=== PATIENT | female | born 1945 ===

== ENCOUNTER 2022-01-17 22:44 | Inpatient (IN) ==
[2022-01-18] MEDS ORDERED: Ondansetron 4 MG/2 ML VIAL IVP PRN (02:24)
[2022-01-18] MEDS ORDERED: Naloxone 0.4 MG/ML INJ IVP PRN (02:24)
[2022-01-18] MEDS ORDERED: Acetaminophen 325 MG TABLET PO PRN (02:24)
[2022-01-18] MEDS ORDERED: Iopamidol - 370 500 ML MLS IVP ONE (03:17)
[2022-01-18 03:47] LABS: Basophils % 0.8 %; Eosinophils # 0.1 K/mcL (0.0-0.6); Eosinophils % 1.5 %; Hematocrit 30.2 % (35.3-44.9); Hemoglobin 9.3 g/dL (11.5-15.4); Immature Granulocytes % 0.5 % (0-4); Lymphocytes # 1.6 K/mcL (0.6-4.6); Lymphocytes % 41.3 %; Mean Corpuscular HGB Conc 30.8 g/dL (31.6-35.5); Mean Corpuscular Hemoglobin 28.7 pg (28.0-33.3); Mean Corpuscular Volume 93.2 fL (83.0-100.0); Mean Platelet Volume 10.7 fL (9.4-12.4); Monocytes # 0.4 K/mcL (0.0-1.3); Monocytes % 10.8 %; Neutrophils # 1.8 K/mcL (1.6-8.9); Platelet Count 175 K/mcL (140-400); Red Blood Count 3.24 M/mcL (3.82-4.97); Red Cell Distribution Width 15.1 % (11.5-14.5); Segmented Neutrophils % 45.1 %
[2022-01-18 03:51] LABS: INR 2.7; Prothrombin Time 30.4 Seconds (9.4-12.1)
[2022-01-18 03:59] LABS: Chol/HDL Ratio 6.7 (0-4.9); Magnesium 2.1 mg/dL (1.6-2.6); Phosphorous 3.6 mg/dL (2.7-4.5)
[2022-01-18 04:03] LABS: % Iron Saturation 16 % (15-50); BUN/Creatinine Ratio 37 (6-26); Blood Urea Nitrogen 24 mg/dL (8-23); Calcium 9.4 mg/dL (8.6-10.3); Carbon Dioxide 27 mEq/L (23-29); Chloride 107 mEq/L (98-107); Glucose 86 mg/dL (70-105); Iron 46 mcg/dL (50-170); Osmolality,Calculated 291 (280-300); Potassium 4.3 mEq/L (3.5-5.1); Sodium 139 mEq/L (136-145); Transferrin 200 mg/dL (203-362)
[2022-01-18 04:18] LABS: Ferritin 96 ng/mL (10-120)
[2022-01-18] MEDS: Pantoprazole 40 MG in 0.9 % Sodium Chloride Mini Bag 100 ML IVC SCH ×4 (05:14→18:17)
[2022-01-18 06:47] LABS: Hepatitis B Surface Antigen Nonreactive (Nonreactive)
[2022-01-18 07:16] LABS: Hepatitis B Core IgM Nonreactive (Nonreactive)
[2022-01-18 07:17] LABS: Hepatitis C Virus Antibody Nonreactive (Nonreactive)
[2022-01-18 07:18] LABS: Hepatitis A Antibody IgM Nonreactive (Nonreactive)
[2022-01-18 11:01] LABS: Basophils % 0.5 %; Eosinophils # 0.1 K/mcL (0.0-0.6); Eosinophils % 1.4 %; Hematocrit 29.4 % (35.3-44.9); Hemoglobin 9.1 g/dL (11.5-15.4); Immature Granulocytes % 0.5 % (0-4); Lymphocytes # 1.5 K/mcL (0.6-4.6); Lymphocytes % 34.9 %; Mean Corpuscular Hemoglobin 29.4 pg (28.0-33.3); Mean Corpuscular Volume 95.1 fL (83.0-100.0); Mean Platelet Volume 10.7 fL (9.4-12.4); Monocytes # 0.5 K/mcL (0.0-1.3); Monocytes % 10.5 %; Neutrophils # 2.3 K/mcL (1.6-8.9); Platelet Count 164 K/mcL (140-400); Red Blood Count 3.09 M/mcL (3.82-4.97); Red Cell Distribution Width 15.2 % (11.5-14.5); Segmented Neutrophils % 52.2 %; White Blood Count 4.3 K/mcL (4.3-11.1)
[2022-01-18 11:48] LABS: INR 2.4; Prothrombin Time 26.9 Seconds (9.4-12.1)
[2022-01-18] MEDS: SODIUM CHLORIDE/NAHCO3/KCL/PEG 4,000 ML SOLN.RECON PO ONE ×2 (17:24→18:07)
[2022-01-19] MEDS: Pantoprazole 40 MG VIAL IVP SCH ×2 (06:23→16:44)
[2022-01-19 06:24] LABS: Basophils % 0.5 %; Hematocrit 24.2 % (35.3-44.9); Immature Granulocytes % 0.5 % (0-4); Lymphocytes # 1.4 K/mcL (0.6-4.6); Mean Corpuscular Hemoglobin 29.6 pg (28.0-33.3); Mean Corpuscular Volume 95.7 fL (83.0-100.0); Mean Platelet Volume 10.6 fL (9.4-12.4); Monocytes # 0.4 K/mcL (0.0-1.3); Neutrophils # 2.3 K/mcL (1.6-8.9); Platelet Count 165 K/mcL (140-400); Red Blood Count 2.53 M/mcL (3.82-4.97); Red Cell Distribution Width 15.3 % (11.5-14.5); White Blood Count 4.1 K/mcL (4.3-11.1)
[2022-01-19 06:32] LABS: Hemoglobin 7.5 g/dL (11.5-15.4)
[2022-01-19 06:35] LABS: INR 2.7; Prothrombin Time 29.4 Seconds (9.4-12.1)
[2022-01-19 06:41] LABS: BUN/Creatinine Ratio 29 (6-26); Blood Urea Nitrogen 20 mg/dL (8-23); Calcium 8.8 mg/dL (8.6-10.3); Carbon Dioxide 30 mEq/L (23-29); Chloride 105 mEq/L (98-107); Glucose 83 mg/dL (70-105); Osmolality,Calculated 290 (280-300); Potassium 3.9 mEq/L (3.5-5.1); Sodium 139 mEq/L (136-145)
[2022-01-19] MEDS ORDERED: carvediloL 6.25 MG TABLET PO SCH (09:00)
[2022-01-19] MEDS ORDERED: Iopamidol - 370 500 ML MLS IVP ONE (11:33)
[2022-01-19] MEDS: MetroNIDAZOLE 500 MG/100 ML 500 MG/100 ML BAG IVPB SCH (16:44)
[2022-01-20] MEDS: MetroNIDAZOLE 500 MG/100 ML 500 MG/100 ML BAG IVPB SCH ×4 (00:53→23:34)
[2022-01-20 05:23] LABS: Basophils % 0.8 %; Eosinophils # 0.1 K/mcL (0.0-0.6); Eosinophils % 1.3 %; Hematocrit 20.3 % (35.3-44.9); Hemoglobin 6.3 g/dL (11.5-15.4); Immature Granulocytes % 0.3 % (0-4); Lymphocytes # 1.5 K/mcL (0.6-4.6); Lymphocytes % 38.4 %; Mean Corpuscular Hemoglobin 29.2 pg (28.0-33.3); Mean Platelet Volume 10.8 fL (9.4-12.4); Monocytes # 0.4 K/mcL (0.0-1.3); Monocytes % 10.3 %; Neutrophils # 1.9 K/mcL (1.6-8.9); Nucleated Red Blood Cells 0.5 /100 WBC (0); Platelet Count 155 K/mcL (140-400); Red Blood Count 2.16 M/mcL (3.82-4.97); Red Cell Distribution Width 15.4 % (11.5-14.5); Segmented Neutrophils % 48.9 %; White Blood Count 3.9 K/mcL (4.3-11.1)
[2022-01-20] MEDS: Pantoprazole 40 MG VIAL IVP SCH ×2 (05:44→18:36)
[2022-01-20 05:49] LABS: BUN/Creatinine Ratio 35 (6-26); Blood Urea Nitrogen 23 mg/dL (8-23); Calcium 9.1 mg/dL (8.6-10.3); Carbon Dioxide 27 mEq/L (23-29); Chloride 105 mEq/L (98-107); Glucose 96 mg/dL (70-105); Osmolality,Calculated 298 (280-300); Potassium 3.9 mEq/L (3.5-5.1); Sodium 142 mEq/L (136-145)
[2022-01-20] MEDS ORDERED: Nitroglycerin 0.4 MG TAB.SUBL SL PRN (07:59)
[2022-01-20] MEDS ORDERED: carvediloL 6.25 MG TABLET PO SCH (09:00)
[2022-01-20] MEDS: levoFLOXacin 500 MG/100 ML 500 MG/100 ML BAG IVPB SCH (12:57)
[2022-01-20] MEDS ORDERED: 0.9 % Sodium Chloride 250 ML ONE (14:35)
[2022-01-20] MEDS: carvediloL 6.25 MG TABLET PO SCH (18:38)
[2022-01-21] MEDS: Pantoprazole 40 MG VIAL IVP SCH ×2 (05:43→16:32)
[2022-01-21 06:11] LABS: Basophils % 0.7 %; Eosinophils # 0.1 K/mcL (0.0-0.6); Eosinophils % 2.4 %; Immature Granulocytes % 0.9 % (0-4); Lymphocytes # 1.1 K/mcL (0.6-4.6); Lymphocytes % 26.1 %; Mean Corpuscular HGB Conc 33.8 g/dL (31.6-35.5); Mean Corpuscular Hemoglobin 29.7 pg (28.0-33.3); Monocytes # 0.3 K/mcL (0.0-1.3); Monocytes % 6.1 %; Neutrophils # 2.7 K/mcL (1.6-8.9); Platelet Count 160 K/mcL (140-400); Red Blood Count 3.64 M/mcL (3.82-4.97); Red Cell Distribution Width 14.1 % (11.5-14.5); Segmented Neutrophils % 63.8 %; White Blood Count 4.3 K/mcL (4.3-11.1)
[2022-01-21 06:13] LABS: Hemoglobin 10.8 g/dL (11.5-15.4); Mean Corpuscular Volume 87.9 fL (83.0-100.0)
[2022-01-21 06:30] LABS: Calcium 8.6 mg/dL (8.6-10.3)
[2022-01-21] MEDS: MetroNIDAZOLE 500 MG/100 ML 500 MG/100 ML BAG IVPB SCH ×2 (08:03→16:32)
[2022-01-21] MEDS: carvediloL 6.25 MG TABLET PO SCH ×2 (08:04→16:32)
[2022-01-21] MEDS: levoFLOXacin 500 MG/100 ML 500 MG/100 ML BAG IVPB SCH (11:24)
[2022-01-21 13:18] LABS: Influenza A PCR Negative (Negative); Influenza B PCR Negative (Negative); Resp. Syncytial Virus PCR Negative (Negative); SARS-CoV-2 by PCR (In House) Negative (Negative)
[2022-01-21 16:09] VITALS: BP 130/60; PULSE 60; TEMP 98.7; O2SAT 97
== END 2022-01-21 19:05 | DRG 378 ==
LOC: 3ANU → SUATTDRO 01-18 02:03
PROVIDERS: ADMIT Internal Medicine; ATTEND Hospitalist